=== PATIENT | female | born 1975 ===

== ENCOUNTER 2022-04-02 07:13 | Day surgery (SDC) | payer OTHER ==
[~2022-04-02] VITALS: Ht 162.6 cm; Wt 105.2 kg
[~2022-04-02 07:13] MED LIST: PERCOCET 5-3251 EACH PO; SYNTHROID175 MCG PO
[2022-04-02] MEDS ORDERED: PERCOCET 5-3251 EACH PO (13:26)
== END 2022-04-02 15:40 | disposition home or self-care (01) ==
LOC: CIR.AMB 07:13
PROVIDERS: ATTEND Surgery
DX: K60.3 Anal fistula (principal); K62.89 Other specified diseases of anus and rectum; Z88.2 Allergy status to sulfonamides; E78.5 Hyperlipidemia, unspecified; Z86.16 Personal history of COVID-19; G43.909 Migraine, unspecified, not intractable, without status migrainosus; E66.9 Obesity, unspecified